=== PATIENT | female | born 1990 | race Caucasian/White ===

== ENCOUNTER 2018-11-20 14:16 | Emergency (ER) | payer SELFPAY ==
[~2018-11-20] VITALS: Ht 157.5 cm; Wt 69.4 kg
[2018-11-20 14:24] VITALS: BP 120/76; Ht 157.5 cm; Wt 69.4 kg
== END 2018-11-20 16:55 | disposition left against medical advice (07) ==
LOC: ED 14:16
DX: Z53.21 Procedure and treatment not carried out due to patient leaving prior to being seen by health care provider (principal)